=== PATIENT | female | born 1975 | race Caucasian/White ===

== ENCOUNTER 2016-11-04 21:18 | Emergency (ER) | payer OTHER ==
[~2016-11-04 21:18] MED LIST: ACIPHEX20 MG; ADVAIR 25028 BLISTE1 PO; ADVIL MIGRAINE200 MG; ALBUTEROL INH 0.3 ML AERO NEB; ALBUTEROL SULF8.5 G1 IH; ALBUTEROL0.83 MG/ML INH; ALBUTEROL17 GM; ALBUTEROL17 GM INH; ALBUTEROL2.5 MG/0.5 IH; ASPIRIN ENTERI325 MG PO; BENADRYL25 MG PO; BENTYL20 MG; BENZONATATE200 MG; BIRTH CONTROL PILLS; CALCIUM500 MG; CHLORDIAZEPOXIDE5 MG; CIPRO500 MG PO; CLARITIN10 MG; CLARITIN10 MG PO; CLEOCIN HCL300 MG PO; CLINDAMYCIN HC300 MG PO; COMPAZINE10 M PO; COUMADIN1 MG PO; COUMADIN10 M1 PO; COUMADIN10 MG PO; COUMADIN7.5 MG PO; CYCLOBENZAPRINE5 M1 PO; DOXY-LEMMON100 MG PO; DUONEB 2.5-0.5 M3 ML IH; ELAVIL25 MG; FLAGYL250 MG PO; FLAGYL500 MG; FLEXERIL; FLEXERIL10 MG; FLEXERIL10 MG PO; FLOXIN10 ML OT; H PO; HYDROCODON-ACE1 EA16 PO; HYDROCODONE; IBUPROFEN600 MG; IMITREX100 MG PO; IMITREX50 MG PO; IPRATR-ALBUTEROL3 ML IH; LEVAQUIN250 MG PO; LEVAQUIN500 MG; LEVAQUIN500 MG PO; LORTAB 7.5/5001 TAB PO; LORTAB ELIXIR480 ML PO; LOVENOX SQ; LYRICA50 MG; LYRICA75 MG; MEDI-PATCH WIT1 EACH TP; METRONIDAZOLE500 MG PO; MICROZIDE12.5 MG PO; MONODOX100 MG PO; MUCINEX600 MG PO; NORCO 10/325 TA1 TAB PO; NORCO 5-325 TA1 EACH PO; NORCO 5/325 TAB1 TAB; NORCO 5/325 TAB1 TAB PO; OMEGA 3 FISH1 CAP.EC PO; PHENERGAN VC W120 ML PO; PHENERGAN W/CO120 ML PO; PREDNISONE10 M1 PO; PREDNISONE20 MG PO; PRILOSEC20 MG; PROAIR HFA8.5 GM INH; PROMETHAZINE W118 ML PO; PROMETHAZINE25 MG PO; PULMICORT; PULMICORT0.25 MG/2; PULMICORT0.25 MG/2 IH; PULMICORT0.5 MG/2 M IH; PULMICORT180 MCG/AE IH; RANITIDINE; RECLIPSEN1 TAB; REGLAN10 MG; REGLAN10 MG PO; SKELAXIN; SKELAXIN400 MG; SKELAXIN800 MG; SUDAFED240 MG; SUDAFED30 M1 PO; SUDAFED60 MG/TAB PO; SUMATRIPTAN; TAMIFLU75 MG PO; TOPAMAX100 MG; TYLENOL W/CODEI1 TAB; TYLENOL650 MG PO; ULTRAM50 MG PO; VALIUM2 M1 PO; VENTOLIN HFA18 GM IH; VICODIN 5/500 T1 TAB PO; VITAMIN A PO; VITAMIN C PO; VITAMIN C500 M1 PO; VITAMIN D400 UNI1 PO; VITAMIN D400 UNIT; VITAMIN D5000 UNIT PO; WAL-PROFEN200 M1 PO; XANAX XR1 MG; XANAX XR2 MG; XANAX0.5 M1 PO; XANAX1 MG; XANAX1 MG PO; ZANTAC150 MG; ZITHROMAX250MG Z-PAK; ZITHROMAX250MG Z-PAK PO; ZITHROMAX500 MG PO; ZOFRAN ODT4 MG PO; ZOFRAN ODT4 MG/UDTAB PO; ZOFRAN4 MG PO; ZOFRAN8 MG PO; [UNRECOGNIZED DRUG - OTHER]; [UNRECOGNIZED DRUG - OTHER]; [UNRECOGNIZED DRUG - OTHER]; [UNRECOGNIZED DRUG - OTHER] PO; [UNRECOGNIZED DRUG - OTHER] PO; [UNRECOGNIZED DRUG - OTHER] PO; [UNRECOGNIZED DRUG - REMARK]
[2016-11-04] MEDS ORDERED: [UNRECOGNIZED DRUG - REMARK] (21:57)
[2016-11-04] MEDS ORDERED: GUAIFENESIN-COD10 ML PO (23:14)
[2016-11-04] MEDS ORDERED: ALBUTEROL2.5 MG/3 M INH (23:14)
[2016-11-04] MEDS ORDERED: PREDNISONE20 M1 PO (23:14)
[2016-12-25] MEDS ORDERED: NORCO 5-325 TA1 EACH PO (00:02)
[2016-12-25] MEDS ORDERED: CLINDAMYCIN HC150 M1 PO (00:02)
[2016-12-25] MEDS ORDERED: KEFLEX500 M4 PO (00:02)
[2016-12-30] MEDS ORDERED: THYMEX PO (13:28)
[2016-12-30] MEDS ORDERED: VITAMIN D5000 UNI1 PO (13:29)
[2016-12-30] MEDS ORDERED: VITAMIN C500 M3 PO (13:30)
[2016-12-30] MEDS ORDERED: VITAMIN B-121000 MC1 PO (13:30)
[2016-12-30] MEDS ORDERED: POTASSIUM99 M5 PO (13:31)
[2016-12-30] MEDS ORDERED: MAGNESIUM250 M3 PO (13:31)
[2016-12-30] MEDS ORDERED: HYDROCODON-ACE1 EA16 PO (13:32)
[2016-12-30] MEDS ORDERED: COUMADIN10 M1 PO (13:35)
[2016-12-30] MEDS ORDERED: LIDODERM1 EACH TP (13:50)
[2016-12-30] MEDS ORDERED: CIPRO500 M2 PO (13:51)
[2016-12-30] MEDS ORDERED: CALCIUM CARBON600 M2 PO (13:51)
[2016-12-31] MEDS ORDERED: CLINDAMYCIN HC150 M1 PO (14:11)
[2017-01-07] MEDS ORDERED: IMITREX100 M2 PO (18:47)
[2017-01-07] MEDS ORDERED: ENDOCET 5-3251 EACH PO (18:47)
[2017-01-31] MEDS ORDERED: NORCO 5-325 TA1 EACH PO (09:27)
== END 2016-11-04 23:42 ==
LOC: EDMED 21:18
DX: J45.901 Unspecified asthma with (acute) exacerbation (principal); J06.9 Acute upper respiratory infection, unspecified; Z86.718 Personal history of other venous thrombosis and embolism; F41.9 Anxiety disorder, unspecified; F43.10 Post-traumatic stress disorder, unspecified; F17.200 Nicotine dependence, unspecified, uncomplicated; Z79.51 Long term (current) use of inhaled steroids; Z79.899 Other long term (current) drug therapy
CPT/HCPCS: J7512